=== PATIENT | male | born 1970 | race Caucasian/White ===

== ENCOUNTER 2021-03-26 11:03 | Emergency (ER) | payer OTHER ==
[~2021-03-26] VITALS: Ht 190.5 cm; Wt 90.4 kg
--- NOTE | 2021-03-26 11:20 | NUR ---
Provider at bedside
--- NOTE | 2021-03-26 11:28 | NUR ---
XRAY AT BEDSIDE
--- NOTE | 2021-03-26 11:41 | NUR ---
PT STATES AT 1000 THIS AM HE WAS REMOVING A 2X4 WITH A HAMMER AND WASN'T EXPECTING IT TO COME OFF SO EASILY, SO WHEN HE HIT IT, THE 2X4 WENT FLYING AND HIT LEFT ANKLE WHICH IMMEDIATELY STARTED TO SWELL. PT TOOK 4 ADIVILS PRIOR TO ARRIVING VSS CALL REMOTE WITHIN REACH.
--- NOTE | 2021-03-26 11:44 | NUR ---
LEFT ANKLE IS CURRENTLY BEING ICED.
[2021-03-26] MEDS ORDERED: OXYcodone/APAP 5/325MG TABLET PO ONE (12:00)
[2021-03-26] MEDS ORDERED: OXYcodone/APAP 5/325MG TABLET ONE (12:03)
[2021-03-26 12:26] VITALS: BP 138/95
== END 2021-03-26 12:36 | disposition home or self-care (01) ==
LOC: ED 12:33
DX: S90.02XA Contusion of left ankle, initial encounter (principal); X58.XXXA Exposure to other specified factors, initial encounter; Y93.89 Activity, other specified; Y92.89 Other specified places as the place of occurrence of the external cause; Y99.8 Other external cause status
CPT/HCPCS: 99283